=== PATIENT | male | born 1965 | race Caucasian/White ===

== ENCOUNTER 2017-02-01 23:25 | Observation (INO) | payer OTHER ==
--- NOTE | 2017-02-02 00:12 | C.PDOC ---
History Of Present Illness patient found inebriated with strong alcohol smell on breath. States he has been drinking all day and his "stomach" hurts. No f/c Time Seen by Provider: 02/02/17 00:12 Chief Complaint (Nursing): Abdominal Pain History Per: Patient History/Exam Limitations: no limitations Onset/Duration Of Symptoms: Hrs Current Symptoms Are (Timing): Still Present Context: Other (alcohol) Severity: Mild Pain Scale Rating Of: 2 Location Of Pain/Discomfort: Diffuse Radiation Of Pain To:: None Quality Of Discomfort: Dull Associated Symptoms: denies: Fever, Chills, Nausea Exacerbating Factors: None Last Bowel Movement: Yesterday Recent travel outside of the [place]: No Additional History Per: EMS Past Medical History Reviewed: Historical Data, Nursing Documentation, Vital Signs Vital Signs: Last Vital Signs Temp 97.7 F 02/01/17 23:30 Pulse 76 02/02/17 03:07 Resp 16 02/02/17 03:07 BP 115/74 02/02/17 03:07 Pulse Ox 95 02/02/17 03:07 - Medical History PMH: Anemia Family History: States: No Known Family Hx - Social History Hx Tobacco Use: (denied) Hx Alcohol Use: Yes (daily) Hx Substance Use: No (denied) - Immunization History Hx Tetanus Toxoid Vaccination: No Hx Influenza Vaccination: No Hx Pneumococcal Vaccination: No Review Of Systems Constitutional: Negative for: Fever, Chills Eyes: Negative for: Redness Cardiovascular: Negative for: Chest Pain Respiratory: Negative for: Shortness of Breath Gastrointestinal: Positive for: Abdominal Pain. Negative for: Nausea, Vomiting Genitourinary: Negative for: Dysuria Musculoskeletal: Negative for: Back Pain Skin: Negative for: Jaundice, Bruising Neurological: Negative for: Weakness Psych: Negative for: Anxiety Physical Exam - Physical Exam Appears: Non-toxic, No Acute Distress Skin: Warm, Dry Head: Normacephalic Eye(s): bilateral: Normal Inspection Oral Mucosa: Moist Neck: Supple Chest: Symmetrical Cardiovascular: Rhythm Regular Respiratory: No Rales, No Rhonchi, No Wheezing Gastrointestinal/Abdominal: Soft, No Tenderness, No Distention, No Rebound Back: Normal Inspection Extremity: Normal ROM Extremity: Bilateral: Atraumatic Neurological/Psych: Oriented x3, Normal Speech, Normal Cognition Gait: Unsteady ED Course And Treatment - Laboratory Results Result Diagrams: 02/02/17 01:55 02/02/17 01:55 O2 Sat by Pulse Oximetry: 97 Pulse Ox Interpretation: Normal ED OBSERVATION - Progress Note Progress Note: 02/02/17 01:35 vitals stable, no complaints 02/02/17 03:36 no complaints 02/02/17 05:53 vitals stable, arousable Disposition Counseled Patient/Family Regarding: Studies Performed, Diagnosis - Disposition Disposition Time: 00:12 Condition: UNKNOWN - Clinical Impression Clinical Impression: Alcohol intoxication Physician Patient Turnover Patient Signed Over To: Mayra Tinoco Handoff Comments: pending sobriety and dispositon
[2017-02-02] MEDS ORDERED: Sodium Chloride 0.9% 1,000 ML IV ONE ×2 (01:31→03:59)
[2017-02-02] MEDS ORDERED: Sodium Chloride 0.9% 1,000 ML ONE (01:51)
[2017-02-02 01:59] LABS: BASO # 0.1 K/uL (0.0-0.2); BASO % 1.3 % (0.0-2.0); EOS # 0.1 K/uL (0.0-0.7); EOS % 2.6 % (0.0-4.0); HEMATOCRIT 43.1 % (35.0-51.0); LYMPH # 1.6 K/uL (1.0-4.3); LYMPH % 39.3 % (20.0-40.0); MEAN CELL VOLUME 93.6 fL (80.0-94.0); MEAN CORPUSCULAR HEMOGLOBIN 31.3 pg (27.0-31.0); MEAN CORPUSCULAR HGB CONC 33.4 g/dL (33.0-37.0); MEAN PLATELET VOLUME 8.2 fL (7.2-11.7); MONO # 0.4 K/uL (0.0-0.8); NRBC % 0.1 % (0.0-2.0); RED CELL DISTRIBUTION WIDTH 14.9 % (11.5-14.5); WHITE BLOOD COUNT 4.2 K/uL (4.8-10.8)
[2017-02-02 02:02] LABS: URINE BILIRUBIN NEGATIVE (NEGATIVE); URINE COLOR Straw (YELLOW); URINE GLUCOSE (UA) NORMAL (Normal); URINE KETONE NEGATIVE (NEGATIVE); URINE LEUKOCYTE ESTERASE NEG Leu/uL (Negative); URINE PROTEIN NEGATIVE (NEGATIVE); URINE UROBILINOGEN NORMAL mg/dL (0.2-1.0)
[2017-02-02 02:08] LABS: CHLORIDE 102 mmol/L (98-107); SODIUM 140 mmol/L (132-148)
[2017-02-02 02:11] LABS: ALB/GLOB RATIO 1.1 (1.0-2.1); ALKALINE PHOSPHATASE 51 U/L (38-126); ALT/SGPT 53 U/L (21-72); AST/SGOT 108 U/L (17-59); BILIRUBIN,TOTAL 0.5 mg/dL (0.2-1.3); BLOOD UREA NITROGEN 12 mg/dL (9-20); CALCIUM 7.5 mg/dl (8.6-10.4); CARBON DIOXIDE 25 mmol/L (22-30); GFR AFRICAN-AMERICAN > 60; GLUCOSE,RANDOM 85 mg/dL (75-110); TOTAL PROTEIN 7.8 g/dL (6.3-8.3)
[2017-02-02 02:20] LABS: INR 0.9
[2017-02-02 02:33] LABS: ALCOHOL SERUM 401 mg/dl (0-10)
[2017-02-02 02:42] LABS: URINE BLOOD NEGATIVE (NEGATIVE)
[2017-02-02 03:08] VITALS: RESP 16
[2017-02-02 08:51] VITALS: BP 118/68; PULSE 74; TEMP 98.1; O2SAT 98
== END 2017-02-02 09:51 | disposition home or self-care (01) ==
LOC: C.ER 23:25 → C.9OBSV 02-02 01:30
PROVIDERS: ADMIT Emergency Medicine; ATTEND Emergency Medicine
DX: F10.120 Alcohol abuse with intoxication, uncomplicated (principal); Y90.8 Blood alcohol level of 240 mg/100 ml or more
CPT/HCPCS: 36415; 80053; 81001; 83690; 85025; 85610; 85730; 96374; 99284; G0378; G0480; J2405; J7040

== ENCOUNTER 2018-12-30 05:48 | Emergency (ER) | payer SELFPAY ==
[2018-12-30 05:53] VITALS: O2SAT 96
--- NOTE | 2018-12-30 06:26 | C.PDOC ---
History Of Present Illness 53 year old male broke his foot a few weeks ago and presents c/o left foot pain. He was initially treated at [facility] [place] but claims he was not given any follow up information. Patient still has orthoshoe on. He is not a good historian, not answering a lot of questions. No other complaints. Time Seen by Provider: 12/30/18 06:12 Chief Complaint (Nursing): Lower Extremity Problem/Injury History Per: Patient History/Exam Limitations: no limitations Onset/Duration Of Symptoms: Days Current Symptoms Are (Timing): Still Present Recent travel outside of the [place]: No Past Medical History Reviewed: Historical Data, Nursing Documentation, Vital Signs Vital Signs: Last Vital Signs Temp 97.7 F 12/30/18 05:49 Pulse 87 12/30/18 05:49 Resp BP 113/74 12/30/18 05:49 Pulse Ox 96 12/30/18 05:49 - Medical History PMH: Anemia Family History: States: Unknown Family Hx - Social History Hx Tobacco Use: (denied) Hx Alcohol Use: Yes (daily) Hx Substance Use: No (denied) - Immunization History Hx Tetanus Toxoid Vaccination: No Hx Influenza Vaccination: No Hx Pneumococcal Vaccination: No Review Of Systems Musculoskeletal: Positive for: Foot Pain Skin: Negative for: Rash Neurological: Negative for: Weakness, Numbness Physical Exam - Physical Exam Appears: Well, Non-toxic, No Acute Distress Skin: Normal Color, Warm, No Rash Head: Atraumatic, Normacephalic Extremity: Normal ROM (x4), Capillary Refill (<2 seconds), Other (Mild left foot edema. No erythema, induration or increased heat. Hard calluses on sole of left foot and toes.) Pulses: Left Dorsalis Pedis: Normal, Right Dorsalis Pedis: Normal Neurological/Psych: Oriented x3, Normal Speech ED Course And Treatment O2 Sat by Pulse Oximetry: 96 (Room air) Pulse Ox Interpretation: Normal Medical Decision Making Medical Decision Making: Pain meds given, patient placed in luz wrap and given ortho referral. 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 - Scribe Statement The provider has reviewed the documentation as recorded by the Scribe Rubin Velez All medical record entries made by the Bellaibe were at my direction and personally dictated by me. I have reviewed the chart and agree that the record accurately reflects my personal performance of the history, physical exam, medical decision making, and the department course for this patient. I have also personally directed, reviewed, and agree with the discharge instructions and disposition.
[2018-12-30 07:00] VITALS: BP 105/66; PULSE 93; RESP 16; TEMP 97.5
== END 2018-12-30 06:59 | disposition home or self-care (01) ==
LOC: C.ER 05:48
DX: M79.672 Pain in left foot (principal)